=== PATIENT | female | born 1970 | race Caucasian/White ===

== ENCOUNTER 2016-11-26 13:30 | Inpatient (IN) | payer BC ==
--- NOTE | ~2016-11-26 | EGD ---
EGD REPORT [facility] [address] [place]. [address] NAME: TAMIKA CUELLO : [birth year] STATUS : ADM IN PAT#: [id number] AGE: 46 ADM/REG DATE : 11/26/16 MR#: [id number] REPORT SERV DATE: 11/29/16 DICTATED BY: DENA BATRES DATE: 11/29/16 REPORT STATUS : Draft TRANSCRIBED BY: [employer] DATE: 11/29/16 [facility] Patient Name: Tamika Cuello Date of : 1970 Attending MD: DENA BATRES, Procedure Date No Time: 11/29/2016 Procedure: Colonoscopy Indications: Abnormal CT of the GI tract Referring MD: YASSINE STORY MD, KHUSHBU FERGUSON III, MD Medicines: Monitored Anesthesia Care Complications: No immediate complications. Estimated blood loss: None. Procedure: Pre-Anesthesia Assessment: - ASA Grade Assessment: II - A patient with mild systemic disease. After I obtained informed consent, the scope was passed under direct vision. Throughout the procedure, the patient's blood pressure, pulse, and oxygen saturations were monitored continuously. The [facility] [id number] was introduced through the anus and advanced to the terminal ileum. The colonoscopy was performed without difficulty. The patient tolerated the procedure well. Findings: The perianal and digital rectal examinations were normal. The terminal ileum appeared normal. Biopsies were taken with a cold forceps for histology. Verification of patient identification for the specimen was done. Estimated blood loss was minimal. There was evidence of a prior end-to-end colo-colonic anastomosis at 20 cm proximal to the anus. This was patent. This was characterized by inflammation. There was a small diverticulum like appearing area within an inflammed edematous portion of mucosa at the anastomosis. The was extruding some pus. This was traversed. Biopsies were taken with a cold forceps for histology. Verification of patient identification for the specimen was done. Estimated blood loss was minimal. The exam was otherwise without abnormality on direct and retroflexion views. Impression: - The examined portion of the ileum was normal. Biopsied. - Patent end-to-end colo-colonic anastomosis. Biopsied. See above for description. May represent a focal diverticulitis. Will discuss with Grey further management. - The examination was otherwise normal on direct and retroflexion views. EGD REPORT [address] [place]. [address] NAME: TAMIKA CUELLO : [birth year] STATUS : ADM IN [facility]#: [id number] AGE: 46 ADM/REG DATE : 11/26/16 MR#: [id number] REPORT SERV DATE: 11/29/16 DICTATED BY: DENA BATRES DATE: 11/29/16 REPORT STATUS : Draft TRANSCRIBED BY: [employer] DATE: 11/29/16 Recommendation: - Patient has a contact number available for emergencies. The signs and symptoms of potential delayed complications were discussed with the patient. Return to normal activities tomorrow. Written discharge instructions were provided to the patient. - Clear liquid diet. - Continue present medications. - Continue antibiotics. - Await pathology results. Procedure Code(s): --- Professional --- 05573, Colonoscopy, flexible, proximal to splenic flexure; with biopsy, single or multiple Diagnosis Code(s): --- Professional --- Z98.0, Intestinal bypass and anastomosis status R93.3, Abnormal findings on diagnostic imaging of other parts of digestive tract CPT copyright 2013 [employer]. All rights reserved. The codes documented in this report are preliminary and upon inspector agricultural commodities review may be revised to meet current compliance requirements. DENA BATRES, 11/29/2016 10:22 AM Number of Addenda: 0 Note Initiated On: 11/29/2016 9:42 AM Scope Withdrawal Time 0 hours 18 minutes 39 seconds [address] [place] [address]
--- NOTE | ~2016-11-26 | CN ---
Consultation Report [facility] [address] [place]. [address] NAME: SELINA CUELLO : [birth year] STATUS : ADM IN PAT#: [id number] AGE: 46 ADM/REG DATE : 11/26/16 MR#: [id number] REPORT SERV DATE: 11/28/16 DICTATED BY: DANAE JAMISON DATE: 11/28/16 REPORT STATUS : Draft TRANSCRIBED BY: MODL DATE: 11/28/16 GI CONSULTATION DATE OF CONSULTATION: 11/28/2016 REASON FOR CONSULTATION: Evaluation and management of abnormal CT scan. HISTORY OF PRESENT ILLNESS: Ms. Cuello is a 46-year-old female patient, who presented to [facility] on 11/26 with a chief complaint of abdominal pain. She states that she has been having abdominal pain for two weeks in duration. She states that it began with some mild distention, no bowel movement, and she states she has had issues with small-bowel obstructions in the past. She states that she took some milk of magnesia with subsequent diarrhea; however, she continued with abdominal pain, thus prompting her to come to the emergency room for further evaluation. She underwent a noncontrasted CT scan of the abdomen and pelvis on 11/26 that showed that she had edema throughout the pelvic fat planes surrounding loops of distal ileum as well as the proximal and mid sigmoid colon, proximal and distal to a previous sigmoid anastomosis, the mid and distal sigmoid colon as well. The distal ileum loops appeared to be thickened, question secondary to colitis or ileitis, with no abscess or perforation being seen. Also, the proximal appendix appeared normal with the distal half of the appendix extending into the above-described area of inflammation, likely secondary inflamed with primary distal appendicitis less likely. She had a brain CT also secondary to headache with no acute abnormality being seen. Dr. Montalvo has been seeing the patient and he asked for GI consultation for possible colonoscopy. She is said today to have a contrasted CT scan of the abdomen and pelvis to further delineate what particularly is going on. Based on those findings, we will plan colonoscopy if needed. PAST MEDICAL HISTORY: Positive for endometriosis with multiple surgical procedures relating to that with a hysterectomy with subsequent repair of colovesical fistula, sigmoid colectomy with colostomy and then colostomy closure, history of small-bowel obstructions in the past and typically resolved with nonsurgical management, bilateral breast implants. FAMILY HISTORY: Noncontributory from a GI standpoint. SOCIAL HISTORY: She is a housewife. She is and does not use alcohol, tobacco, or illicit drugs. ALLERGIES: PENICILLIN. HOME MEDICATIONS: Tylenol, artificial tears, glucosamine and chondroitin, Advil, fish oil, fyjd-htb-xivybiu fat burner. REVIEW OF SYSTEMS: A 10-point review of systems has been obtained with pertinent positives being addressed in Consultation Report [place] [address] [place]. [address] NAME: SELINA CUELLO : [birth year] STATUS : ADM IN PAT#: [id number] AGE: 46 ADM/REG DATE : 11/26/16 MR#: [id number] REPORT SERV DATE: 11/28/16 DICTATED BY: DANAE JAMISON DATE: 11/28/16 REPORT STATUS : Draft TRANSCRIBED BY: ANDREW DATE: 11/28/16 the history of present illness. PERTINENT LABORATORY DATA: Sodium 144, potassium 3.7, BUN is 7, creatinine is 0.79. White count 7.1, hemoglobin 11.1, hematocrit 33.0, platelet count 195. Procalcitonin was less than 0.05. Magnesium 2.5, total bilirubin 0.5, alkaline phosphatase 57, ALT 16, AST 12. PHYSICAL EXAMINATION: VITAL SIGNS: Temperature 97, pulse 71, respirations 16, and blood pressure 97/55. NEURO: Reveals an alert female, resting in bed with no obvious focal deficits. GENERAL: She is cooperative, in no apparent distress. She is awake. She is alert. She is oriented x3. HEAD, EARS, EYES, NOSE, AND THROAT: Anicteric. Pupils equal, round, reactive to light and accommodation. Normocephalic and atraumatic. NECK: No JVD. No palpable nodes. LUNGS: Mildly decreased in the bases. Clear in the upper lobes with normal respiratory effort exhibited. Equal expansion. CARDIOVASCULAR SYSTEM: Regular rate and rhythm. S1 and S2. No murmurs, rubs, gallops, S3, or S4 appreciated. ABDOMEN: She has very hypoactive bowel sounds. Mild distention. Tender to palpation mild diffusely, but without rebound or guarding elicited on exam. Unable to assess organomegaly. EXTREMITIES: No edema. Normal distal pulses. SKIN: Warm, dry, and intact. ASSESSMENT: 1. Ileitis/colitis by CT scan. 2. History of colovesical fistula with colostomy, status post reversal. 3. History of recurrent small-bowel obstructions. 4. Abdominal pain. 5. Nausea and vomiting. PLAN: 1. Check a CRP and sedimentation rate. 2. Follow up contrasted CT scan. 3. Plus or minus colonoscopy based on CT scan findings. We will discuss with Dr. Carrasco and Elian, who are covering this week for Dr. Smith. We will follow up CT, other recommendations after that. COLIN/ANDREW PAOLA Soliz / [id number] Consultation Report [place] [address] [place]. [address] NAME: SELINA CUELLO : [birth year] STATUS : ADM IN PAT#: [id number] AGE: 46 ADM/REG DATE : 11/26/16 MR#: [id number] REPORT SERV DATE: 11/28/16 DICTATED BY: DANAE JAMISON DATE: 11/28/16 REPORT STATUS : Draft TRANSCRIBED BY: ANDREW DATE: 11/28/16 CC: Pérez Drake D.O.
--- NOTE | ~2016-11-26 | DS ---
Discharge Summary [facility] [address] [place]. [address] NAME: SELINA CUELLO : [birth year] STATUS : DIS IN PAT#: [id number] AGE: 46 ADM/REG DATE : 11/26/16 MR#: [id number] REPORT SERV DATE: 11/30/16 DICTATED BY: KIRA KEENAN DATE: 11/30/16 REPORT STATUS : Draft TRANSCRIBED BY: MODL DATE: 11/30/16 ADMISSION DATE: 11/26/2016 DISCHARGE DATE: 11/30/2016 DIAGNOSES ON ADMISSION: 1. Ileitis. 2. Colitis. 3. Rule out appendicitis. 4. History of multiple surgeries in the past. DIAGNOSES ON DISCHARGE: 1. Focal diverticulitis/colitis. 2. History of colovesical fistula in the past. History of colostomy in the past. 3. Abdominal pain and bloating, resolved. CONSULTANTS ON THE CASE: Director Of Perioperative Services, Dr. Riaz Carrasco and his nurse practitioner Amadeo; as well as General Surgery, Dr. Que Montalvo. PROCEDURES: Done during this hospitalization: Colonoscopy done on 11/29/2016, revealed patent end-to-end colocolonic anastomosis, status post biopsy. Possible focal diverticulitis. IMAGING STUDIES: Done during this hospitalization: 1. CT on the abdomen and pelvis without contrast done on 11/28/2016, showed persistent mesenteric edema with thickening of the wall of the sigmoid colon. A diffuse colitis is not suspected. No diverticula are seen in the involved area to suggest diverticulitis. No ascites found to suggest peritonitis. 2. CT of the head without contrast, no acute intracranial abnormality. HISTORY OF PRESENT ILLNESS: Briefly this is a very pleasant, 46-year-old female, who was admitted by my colleague, Dr. Que Collado on 11/26/2016 with a complaint of abdominal pain. For the details, see history of present illness dictated by Dr. Collado. HOSPITAL COURSE: Briefly, the patient was started on intravenous antibiotics and Gastroenterology as well as Surgery were consulted. There was a possible suspicion for possible appendicitis or colitis. The patient had multiple surgeries in the past. The patient was seen by Dr. Collado during whole hospitalization until yesterday. Starting 11/29/2016, I saw this patient. She was very stable, afebrile, her abdominal pain was improving. She underwent colonoscopy which showed possible diverticulitis. Biopsy was also done by Dr. Carrasco. The patient was placed initially on a clear-liquid diet which was changed to full-liquid diet, which she tolerated very well. She does not have any nausea or vomiting. She wanted to go home today, as well as Dr. Paulson saw the patient today. Since the patient is improving and she is reliable also, Dr. Montalvo was okay for the patient to be discharged on oral Levaquin and Flagyl for next 12 days to complete total of two weeks of Levaquin and Flagyl combination as well as first dosages were given here and she tolerated them, as well as Gastroenterology nurse practitioner, Amadeo, came here and she also Discharge Summary [address] [place]. [address] NAME: SELINA CUELLO : [birth year] STATUS : DIS IN PAT#: [id number] AGE: 46 ADM/REG DATE : 11/26/16 MR#: [id number] REPORT SERV DATE: 11/30/16 DICTATED BY: KIRA KEENAN DATE: 11/30/16 REPORT STATUS : Draft TRANSCRIBED BY: ANDREW DATE: 11/30/16 recommended the patient to be discharged on Levaquin and Flagyl for 12 days. She gave also prescriptions, as well as she gave anti-nausea medicine prescription, and she recommended to follow up with Dr. Carrasco in two to four weeks to see how she will progress with her treatment of diverticulitis, as well as the biopsy results will be back at that time. Dr. Montalvo also recommended the patient to follow up with scallop cutter, Dr. Carrasco. The patient also was recommended to follow up with Dr. Zeeshan Toledo, her primary care physician in a week. The patient recommended to continue mkhz-jye-scxpqxf fish oil. She is okay to continue glucosamine and chondroitin. She needs to stop her exui-ubt-adzcbcs fat burner. Tylenol dose was recommended to decrease to 650 mg p.o. q.6 hours p.r.n. for pain. The patient to stop Advil and avoid NSAIDs. This was discussed with the patient. The patient to continue artificial tears. The patient is given prescription for Levaquin 750 p.o. daily for 12 days and Flagyl 500 p.o. t.i.d. for 12 days, as well as she was given anti-nausea medicine, Zofran. I spent 45 minutes on discharge. The patient was discharged in stable condition. Everything was discussed with the patient and her , Dr. Cuello. MG/MODL Kira Keenan M.D. / [id number] CC: Pérez Vidal D.O. Gregory Olds, MD Richard Hunter Jennings III, M.D.
--- NOTE | ~2016-11-26 | CN ---
Consultation Report [facility] [address] [place]. [address] NAME: SELINA CUELLO : [birth year] STATUS : [facility] [id number] AGE: 46 ADM/REG DATE : 11/26/16 MR#: [id number] REPORT SERV DATE: 11/27/16 DICTATED BY: KHUSHBU FERGUSON III DATE: 11/27/16 REPORT STATUS : Draft TRANSCRIBED BY: MODL DATE: 11/27/16 CONSULT DATE OF CONSULTATION: 11/27/2016 REASON FOR CONSULT: 1. Abdominal pain. 2. Colitis. 3. Recommendation regarding surgical management. HISTORY OF PRESENT ILLNESS: I am asked to see this 46-year-old female, hospitalized today for the above reasons. The patient complains of lower abdominal pain. This has been associated with some nausea and vomiting. These symptoms have been ongoing for about 1-1/2 weeks. The patient has had no fever or chills. She has had no diarrhea. She has had some constipation but she has this intermittently. The patient has a history of multiple abdominal operations related to previous endometriosis. She is status post hysterectomy with repair of colovesical fistula which required colostomy, and subsequent colostomy closure. She has had intermittent small bowel obstructions since that time. The patient's pain is in the lower abdomen and mid abdomen. It is intermittent in nature. This has been associated with constipation. The patient presented for an outpatient CT scan of the abdomen and pelvis which showed evidence for inflammatory changes around the distal ileum and proximal and mid sigmoid colon, concern for colitis and ileitis. PAST MEDICAL HISTORY: 1. History of endometriosis as above, with multiple surgical procedures related to this including hysterectomy, repair of colovesical fistula, colostomy, and colostomy closure. 2. History of small bowel obstructions in the past. ALLERGIES: PENICILLIN. MEDICATIONS: Artificial Tears and Tylenol. FAMILY HISTORY: Positive for hypertension. SOCIAL HISTORY: The patient is . She has no history of tobacco or alcohol use. REVIEW OF SYSTEMS: The patient's 14-point review of systems is otherwise unremarkable. Consultation Report [facility] [address] [place]. [address] NAME: SELINA CUELLO : [birth year] STATUS : ADM [facility]#: [id number] AGE: 46 ADM/REG DATE : 11/26/16 MR#: [id number] REPORT SERV DATE: 11/27/16 DICTATED BY: MARTY FRANCOISKHUSHBU PORTERT DATE: 11/27/16 REPORT STATUS : Draft TRANSCRIBED BY: ANDREW DATE: 11/27/16 PHYSICAL EXAMINATION: GENERAL: This is a female, in no acute distress. She is alert and oriented x3. VITAL SIGNS: Blood pressure 102/61, temperature 99.2, pulse 80. HEENT: Unremarkable. Cranial nerves 2 through 12 are normal. LUNGS: Clear. CARDIAC: Normal. ABDOMEN: Slightly distended, but soft and completely nontender with normal bowel sounds. There is no guarding. No peritoneal signs are noted. EXTREMITIES: Normal with no edema. LABORATORY DATA: White blood cell count is normal at 9.8, hematocrit 38.2. Electrolytes are unremarkable. CT scan of the abdomen and pelvis which I reviewed shows inflammatory changes around the terminal ileum, sigmoid colon. There is no evidence for perforation or abscess formation. It was noted that the distal appendix is involved with this inflammatory change but no definite evidence for appendicitis. There are noted to be some diverticula within the colon with no evidence for acute diverticulitis. There is noted to be prominent stranding throughout the pelvic fat planes with thickened loops of distal ileum and stranding as well as thickening of the mid and distal sigmoid colon. The distal half of the appendix also appeared to be thickened and thought to be secondarily involved. ASSESSMENT: 1. 46-year-old female with abdominal pain, with apparent ileitis and colitis based on radiographic findings. 2. Appendix appears to be secondarily involved with this inflammatory process in the pelvis with no evidence for acute appendicitis clinically or radiographically as far as I can determine. 3. History of previous hysterectomy with repair of colovesical fistula requiring colostomy, colostomy closure, and subsequent history of bowel obstructions. PLAN: The patient is stable at this time. No evidence of need for acute surgical intervention. She was just started empirically on antibiotics. The patient has no clinical or radiographic evidence for appendicitis or indication of need for immediate or acute surgical intervention. We will follow the patient with you. This plan has been explained to the patient. Her questions have been answered. She understands and agrees to this as planned. JENNY/ANDREW Khushbu Ferguson III, M.D. Consultation Report [place] [id number] [facility] [place] [address] NAME: SELINA CUELLO : [birth year] STATUS : ADM IN PAT#: [id number] AGE: 46 ADM/REG DATE : 11/26/16 MR#: [id number] REPORT SERV DATE: 11/27/16 DICTATED BY: KHUSHBU FERGUSON III DATE: 11/27/16 REPORT STATUS : Draft TRANSCRIBED BY: MODL DATE: 11/27/16 / [id number] CC: Pérez Drake D.O.
--- NOTE | ~2016-11-26 | HP ---
History And Physical [place] [address] [place]. [address] NAME: SELINA CUELLO : [birth year] STATUS : ADM IN [facility]#: [id number] AGE: 46 ADM/REG DATE : 11/26/16 MR#: [id number] REPORT SERV DATE: 11/26/16 DICTATED BY: KHUSHBU CHUNG DATE: 11/26/16 REPORT STATUS : Draft TRANSCRIBED BY: MODL DATE: 11/26/16 DATE OF ADMISSION: 11/26/2016 This is a 46-year-old female who comes in for abdominal pain. The patient has complicated multiple surgeries. I think it all started in 2003 when the patient had endometriosis, underwent a hysterectomy, and then she had a repair of the colovesical fistula, had a colostomy at that time, and then a closure in 2005. The patient has been following up with [facility] and seems to be doing well, however from time to time, she gets this episodic left lower quadrant pain, sometimes epigastric pain with some nausea and vomiting and goes away after a few days. She was not feeling well for about one and half weeks now and started increased pain about four days ago, but this time aside from the left lower quadrant area, she is also experiencing it on the right lower quadrant area. She did not have any vomiting, a little bit of nausea but she noted that she was not moving her bowels. She has a problem with chronic constipation for which she takes MiraLAX but this time it is not working. She even took milk of magnesia with some bowel movement 3 days ago but it is more of liquid stuff from the milk of magnesia rather than a good bowel movement. The patient finally went to the emergency room where a CAT scan revealed edema throughout the pelvic fat plane surrounding loops of distal ileum as well as the proximal and mid sigmoid colon, proximal and distal to a previous sigmoid anastomosis, mid and distal sigmoid colon as well as the distal ileal loops appear thickened. This might be secondary to colitis or ileitis. No abscess or perforation. Proximal appendix appears normal with the distal half of the appendix extending into the above-described area of inflammation likely secondary inflamed with primary distal appendicitis less likely. Left ovarian cyst measuring 1.5 cm and a large hemorrhagic cyst was seen on the left ovary on 12/16/2003, status post hysterectomy. We are now called to admit the patient. The patient denies any fever or chills. There is no dysuria, hematuria, or pyuria but there is some frequency. There is no cough or shortness of breath. She does have a little bit of a headache but no near syncopal or syncopal episode. No rashes. No chest pain or palpitations and the rest of the 14-point review of systems is negative except as above. PAST MEDICAL HISTORY: Includes the above, bilateral breast implants. She denies any cardiac, pulmonary, renal, or hepatic problems. ALLERGIES: SHE HAS NO KNOWN DRUG ALLERGIES FROM THE PREVIOUS NOTES; HOWEVER, SHE IS TELLING ME RIGHT NOW SHE HAS ALLERGY TO PENICILLIN WHICH CAUSES HAND SWELLING. MEDICATIONS: She is on the following medications: Tylenol; Artificial Tears; glucosamine; Advil; fish oil; and afcs-gec-dnvaatn fat burner. FAMILY HISTORY: Positive for hypertension. SOCIAL HISTORY: The patient does not smoke, drink, or use recreational drugs. PHYSICAL EXAMINATION: GENERAL: The patient is alert and oriented x3, not in cardiopulmonary distress. VITAL SIGNS: Include a temperature of 98.6, blood pressure of 113/74, pulse rate of 92, History And Physical [address] [address] NAME: SELINA CUELLO : [birth year] STATUS : ADM IN [facility]#: [id number] AGE: 46 ADM/REG DATE : 11/26/16 MR#: [id number] REPORT SERV DATE: 11/26/16 DICTATED BY: KHUSHBU CHUNG DATE: 11/26/16 REPORT STATUS : Draft TRANSCRIBED BY: MODL DATE: 11/26/16 respiration of 18, and saturating 99% on room air. NECK: She has supple neck. No JVD or carotid bruits. No lymphadenopathy. HEENT: [place] conjunctivae. Anicteric sclerae. No pharyngeal erythema. LUNGS: Clear lungs. No rales. No wheezes. CARDIOVASCULAR: Regular rate and rhythm. No murmurs. ABDOMEN: Positive bowel sounds. Soft. There is tenderness in the right lower quadrant area, more than the left lower quadrant area. No rebound, guarding, or masses. Fair pulses. No edema. NEUROLOGIC: Nonlocalizing. LABORATORY DATA: Laboratory reveals a chemistry within normal limits. CBC within normal limits. Urinalysis is unremarkable and a CAT scan of the head shows no acute intracranial abnormality. Right maxillary sinus disease. ASSESSMENT: 1. Ileitis. 2. Colitis. 3. Rule out appendicitis. 4. History of multiple surgeries in the past. PLAN: The patient's CT is worrisome for a possible surgical intervention. Unfortunately Dr. Medellin has moved on to [place]. wants Dr. Montalvo on the case. We will place the patient on [address] and start Rocephin and Flagyl, hydrate, and monitor the electrolytes. This has been explained to her in front of her and they agreed and understood the plan. KATJA/ANDREW Khushbu Chung M.D. / [id number] CC: Pérez Drake D.O.
[2016-11-26 12:45] LABS: BASOPHILS 0.2 %; BASOPHILS ABSOLUTE 0.02 10/3/uL (0.0-0.16); EOSINOPHILS 0.6 %; EOSINOPHILS ABSOLUTE 0.06 10/3/uL (0.0-0.53); HEMATOCRIT 38.2 % (36.0-48.0); HEMOGLOBIN 13.3 g/dL (12.0-16.0); IMMATURE GRANULOCYTES 0.3 %; IMMATURE GRANULOCYTES ABSOLUTE 0.03 10/3/uL (0.0-0.11); LYMPHOCYTES 10.6 %; LYMPHOCYTES ABSOLUTE 1.04 10/3/uL (0.67-4.30); MEAN CORPUS HGB CONC 34.8 g/dL (32.0-36.0); MEAN CORPUSCULAR HEMOGLOB 33.1 pg (26.0-34.0); MEAN PLATELET VOLUME 9.9 fL (9.2-13.0); MONOCYTES 6.7 %; MONOCYTES ABSOLUTE 0.66 10/3/uL (0.21-1.20); NEUTROPHILS 81.6 %; NEUTROPHILS ABSOLUTE 7.97 10/3/uL (2.02-8.40); PLATELET COUNT 212 10/3/uL (150-400); RBC DISTRIBUTION WIDTH 12.4 % (12.0-16.0); RED CELL COUNT 4.02 10/6/uL (4.0-5.6)
[2016-11-26 12:48] LABS: MANUAL DIFF NO %; WHITE BLOOD CELLS 9.8 10/3/uL (4.5-10.5)
[2016-11-26 13:00] LABS: BUN (BLOOD UREA NITROGEN) 13 MG/DL (6-23); CALCIUM, SERUM 8.8 MG/DL (8.5-10.4); CHLORIDE, SERUM 102 MMOL/L (96-112); CO2 (CARBON DIOXIDE) 28 MMOL/L (24-34); CREATININE 0.89 MG/DL (0.55-1.02); GFR AFRICAN AMERICAN 89 ML/MIN (>=60); GFR NON AFRICAN AMERICAN 77 ML/MIN (>=60); GLUCOSE, SERUM 104 MG/DL (60-99); SGOT(AST) 13 U/L (5-40); SGPT(ALT) 24 U/L (5-65); SODIUM, SERUM 141 MMOL/L (135-148)
[2016-11-26 13:02] LABS: TOTAL BILIRUBIN 0.6 MG/DL (0-1.2); TOTAL PROTEIN 7.6 G/DL (6.0-8.5)
[2016-11-26 13:02] LABS: ASCORBIC ACID (UR NOT ORDER) NEG (NEG); BILIRUBIN, URINE NEGATIVE (NEG); ER URINALYSIS TAT 0 Hrs 11 Mins; KETONE, URINE NEGATIVE (NEG); LEUKOCYTE ESTERASE(NOT OR NEG (NEG); NITRITE (URINE) NEG (NEG); WBC (NOT ORDERED) (RFLEX) 2 (0-5)
[2016-11-26 13:04] LABS: A/G RATIO 1.1 (0.7-1.9); ALKALINE PHOSPHATASE 64 U/L (45-117); GLOBULIN 3.6 G/DL (2.5-4.1)
[~2016-11-26 13:30] MED LIST: *DENIES; ZOL100 PO; probiotic
[2016-11-26] MEDS ORDERED: FISH OIL OTC PO (14:26)
[2016-11-26] MEDS ORDERED: FAT BURNER PO (14:27)
[2016-11-26] MEDS ORDERED: GLUCCHONDR PO (14:27)
[2016-11-26] MEDS ORDERED: ADVIL PO (14:28)
[2016-11-26] MEDS ORDERED: ACET500CAP PO (14:28)
[2016-11-26] MEDS ORDERED: TEARS PURE OPH (14:28)
[2016-11-26 17:25] LABS: PHOSPHORUS, SERUM 3.7 MG/DL (2.5-4.5)
[2016-11-26 18:16] LABS: PROCALCITONIN <0.05 ng/mL (<0.5)
[2016-11-27 08:14] LABS: BASOPHILS 0.3 %; BASOPHILS ABSOLUTE 0.03 10/3/uL (0.0-0.16); EOSINOPHILS 1.4 %; EOSINOPHILS ABSOLUTE 0.16 10/3/uL (0.0-0.53); HEMATOCRIT 36.1 % (36.0-48.0); HEMOGLOBIN 12.2 g/dL (12.0-16.0); IMMATURE GRANULOCYTES 0.2 %; IMMATURE GRANULOCYTES ABSOLUTE 0.02 10/3/uL (0.0-0.11); LYMPHOCYTES 11.8 %; LYMPHOCYTES ABSOLUTE 1.32 10/3/uL (0.67-4.30); MEAN CORPUS HGB CONC 33.8 g/dL (32.0-36.0); MEAN CORPUSCULAR HEMOGLOB 32.4 pg (26.0-34.0); MEAN PLATELET VOLUME 10.1 fL (9.2-13.0); MONOCYTES 8.1 %; MONOCYTES ABSOLUTE 0.91 10/3/uL (0.21-1.20); NEUTROPHILS 78.2 %; NEUTROPHILS ABSOLUTE 8.74 10/3/uL (2.02-8.40); PLATELET COUNT 206 10/3/uL (150-400); RBC DISTRIBUTION WIDTH 12.5 % (12.0-16.0); RED CELL COUNT 3.76 10/6/uL (4.0-5.6); WHITE BLOOD CELLS 11.2 10/3/uL (4.5-10.5)
[2016-11-27 08:15] LABS: MANUAL DIFF NO %
[2016-11-27 08:31] LABS: ALBUMIN 3.3 G/DL (3.5-5.0); ALKALINE PHOSPHATASE 57 U/L (45-117); BUN (BLOOD UREA NITROGEN) 11 MG/DL (6-23); CALCIUM, SERUM 8.5 MG/DL (8.5-10.4); CHLORIDE, SERUM 105 MMOL/L (96-112); CO2 (CARBON DIOXIDE) 26 MMOL/L (24-34); GFR AFRICAN AMERICAN 101 ML/MIN (>=60); GFR NON AFRICAN AMERICAN 87 ML/MIN (>=60); GLOBULIN 3.4 G/DL (2.5-4.1); GLUCOSE, SERUM 93 MG/DL (60-99); POTASSIUM, SERUM 3.7 MMOL/L (3.5-5.3); SGOT(AST) 12 U/L (5-40); SGPT(ALT) 16 U/L (5-65); SODIUM, SERUM 140 MMOL/L (135-148); TOTAL BILIRUBIN 0.5 MG/DL (0-1.2); TOTAL PROTEIN 6.7 G/DL (6.0-8.5)
[2016-11-28 05:03] LABS: BASOPHILS 0.4 %; BASOPHILS ABSOLUTE 0.03 10/3/uL (0.0-0.16); EOSINOPHILS 2.3 %; EOSINOPHILS ABSOLUTE 0.16 10/3/uL (0.0-0.53); HEMOGLOBIN 11.1 g/dL (12.0-16.0); IMMATURE GRANULOCYTES 0.3 %; IMMATURE GRANULOCYTES ABSOLUTE 0.02 10/3/uL (0.0-0.11); LYMPHOCYTES 23.2 %; LYMPHOCYTES ABSOLUTE 1.64 10/3/uL (0.67-4.30); MEAN CORPUS HGB CONC 33.6 g/dL (32.0-36.0); MEAN CORPUSCULAR HEMOGLOB 32.2 pg (26.0-34.0); MEAN CORPUSCULAR VOLUME 95.7 fL (80-100); MEAN PLATELET VOLUME 9.9 fL (9.2-13.0); MONOCYTES 7.2 %; MONOCYTES ABSOLUTE 0.51 10/3/uL (0.21-1.20); NEUTROPHILS 66.6 %; NEUTROPHILS ABSOLUTE 4.72 10/3/uL (2.02-8.40); PLATELET COUNT 195 10/3/uL (150-400); RBC DISTRIBUTION WIDTH 12.4 % (12.0-16.0); RED CELL COUNT 3.45 10/6/uL (4.0-5.6); WHITE BLOOD CELLS 7.1 10/3/uL (4.5-10.5)
[2016-11-28 05:10] LABS: MANUAL DIFF NO %
[2016-11-28 05:11] LABS: CALCIUM, SERUM 7.7 MG/DL (8.5-10.4); CHLORIDE, SERUM 109 MMOL/L (96-112); CO2 (CARBON DIOXIDE) 28 MMOL/L (24-34); CREATININE 0.79 MG/DL (0.55-1.02); GFR AFRICAN AMERICAN 103 ML/MIN (>=60); GFR NON AFRICAN AMERICAN 89 ML/MIN (>=60); POTASSIUM, SERUM 3.7 MMOL/L (3.5-5.3); SODIUM, SERUM 144 MMOL/L (135-148)
[2016-11-28 05:13] LABS: BUN (BLOOD UREA NITROGEN) 7 MG/DL (6-23); GLUCOSE, SERUM 125 MG/DL (60-99)
[2016-11-29 07:09] LABS: BASOPHILS 0.9 %; BASOPHILS ABSOLUTE 0.04 10/3/uL (0.0-0.16); EOSINOPHILS ABSOLUTE 0.13 10/3/uL (0.0-0.53); HEMATOCRIT 31.2 % (36.0-48.0); HEMOGLOBIN 10.6 g/dL (12.0-16.0); IMMATURE GRANULOCYTES 0.2 %; IMMATURE GRANULOCYTES ABSOLUTE 0.01 10/3/uL (0.0-0.11); LYMPHOCYTES ABSOLUTE 1.53 10/3/uL (0.67-4.30); MEAN CORPUSCULAR HEMOGLOB 31.9 pg (26.0-34.0); MEAN PLATELET VOLUME 9.5 fL (9.2-13.0); MONOCYTES 5.9 %; MONOCYTES ABSOLUTE 0.26 10/3/uL (0.21-1.20); PLATELET COUNT 207 10/3/uL (150-400); RBC DISTRIBUTION WIDTH 12.4 % (12.0-16.0); RED CELL COUNT 3.32 10/6/uL (4.0-5.6); WHITE BLOOD CELLS 4.4 10/3/uL (4.5-10.5)
[2016-11-29 07:11] LABS: MANUAL DIFF NO %
[2016-11-29 07:21] LABS: BUN (BLOOD UREA NITROGEN) 4 MG/DL (6-23); CALCIUM, SERUM 7.6 MG/DL (8.5-10.4); CHLORIDE, SERUM 109 MMOL/L (96-112); CO2 (CARBON DIOXIDE) 28 MMOL/L (24-34); CREATININE 0.71 MG/DL (0.55-1.02); GFR AFRICAN AMERICAN 117 ML/MIN (>=60); GFR NON AFRICAN AMERICAN 101 ML/MIN (>=60); GLUCOSE, SERUM 117 MG/DL (60-99); POTASSIUM, SERUM 3.6 MMOL/L (3.5-5.3); SODIUM, SERUM 145 MMOL/L (135-148)
[2016-11-30 04:55] LABS: BASOPHILS 0.9 %; BASOPHILS ABSOLUTE 0.04 10/3/uL (0.0-0.16); EOSINOPHILS 2.8 %; EOSINOPHILS ABSOLUTE 0.12 10/3/uL (0.0-0.53); HEMOGLOBIN 11.6 g/dL (12.0-16.0); IMMATURE GRANULOCYTES 0.2 %; IMMATURE GRANULOCYTES ABSOLUTE 0.01 10/3/uL (0.0-0.11); LYMPHOCYTES 38.4 %; LYMPHOCYTES ABSOLUTE 1.64 10/3/uL (0.67-4.30); MEAN CORPUS HGB CONC 33.5 g/dL (32.0-36.0); MEAN CORPUSCULAR VOLUME 95.3 fL (80-100); MEAN PLATELET VOLUME 9.6 fL (9.2-13.0); MONOCYTES 7.5 %; MONOCYTES ABSOLUTE 0.32 10/3/uL (0.21-1.20); NEUTROPHILS 50.2 %; NEUTROPHILS ABSOLUTE 2.14 10/3/uL (2.02-8.40); PLATELET COUNT 252 10/3/uL (150-400); RBC DISTRIBUTION WIDTH 12.2 % (12.0-16.0); RED CELL COUNT 3.63 10/6/uL (4.0-5.6); WHITE BLOOD CELLS 4.3 10/3/uL (4.5-10.5)
[2016-11-30 04:56] LABS: HEMATOCRIT 34.6 % (36.0-48.0); MANUAL DIFF NO %
[2016-11-30 05:19] LABS: BUN (BLOOD UREA NITROGEN) 5 MG/DL (6-23); CHLORIDE, SERUM 111 MMOL/L (96-112); CO2 (CARBON DIOXIDE) 25 MMOL/L (24-34); CREATININE 0.81 MG/DL (0.55-1.02); GFR AFRICAN AMERICAN 100 ML/MIN (>=60); GFR NON AFRICAN AMERICAN 86 ML/MIN (>=60); GLUCOSE, SERUM 127 MG/DL (60-99); SODIUM, SERUM 145 MMOL/L (135-148)
[2016-11-30 05:23] LABS: CALCIUM, SERUM 8.6 MG/DL (8.5-10.4)
[2016-11-30] MEDS ORDERED: T PO (12:06)
[2016-11-30] MEDS ORDERED: LEVAQUIN750 MG PO (12:08)
[2016-11-30] MEDS ORDERED: ZOFRAN (12:09)
[2016-11-30] MEDS ORDERED: FLAG500TAB PO (12:09)
== END 2016-11-30 12:28 | disposition home or self-care (01) | DRG 392 ==
LOC: ER 13:30 → 5SO 14:22
PROVIDERS: Emergency Medicine; Hospitalist; Internal Medicine; Internal Medicine Gastroenterology; Surgery
PROC: 0DBB8ZX Excision of Ileum, Via Natural or Artificial Opening Endoscopic, Diagnostic (ICD-10-PCS; principal; 2016-11-29 11:00)
DX: K57.32 Diverticulitis of large intestine without perforation or abscess without bleeding (principal); K52.9 Noninfective gastroenteritis and colitis, unspecified; Z88.0 Allergy status to penicillin; Z82.49 Family history of ischemic heart disease and other diseases of the circulatory system; Z90.710 Acquired absence of both cervix and uterus; Z23 Encounter for immunization
CPT/HCPCS: 70450; 74176; 74177; 80048; 80053; 81001; 83690; 83735; 84100; 84145; 85025; 85652; 86140; 88305; 88341; 88342; 96374; 96375; 96376; 99285; A9270-GY; J1170; J1956; J2405; J2550; J3010; Q9967